=== PATIENT | male | born 1970 | race Caucasian/White ===

== ENCOUNTER 2023-05-08 18:03 | Inpatient (IN) | payer OTHER ==
[2023-05-08 18:55] VITALS: BMI 38.4
[2023-05-08] MEDS ORDERED: DICYCLOMINE HCL 10 MG CAPSULE PO PRN (19:47)
[2023-05-08] MEDS ORDERED: NALOXONE HCL (KLOXXADO) 8 MG SPRAY NS PRN (19:47)
[2023-05-08] MEDS ORDERED: POLYETHYLENE GLYCOL (HEALTHYLAX) 3350 17 GM PACKET PO PRN (19:47)
[2023-05-08] MEDS ORDERED: ACETAMINOPHEN 325 MG TABLET (FP) PO PRN (19:47)
[2023-05-08] MEDS ORDERED: MAGNESIUM HYDROX 2400MG/30ML ORAL SUSPENSION 30 ML CUP PO PRN (19:47)
[2023-05-08] MEDS ORDERED: BENZOCAINE/MENTHOL (CHLORASEPTIC ) LOZENGE MM PRN (19:47)
[2023-05-08] MEDS ORDERED: ONDANSETRON *ODT* 4 MG TABLET SL PRN (19:47)
[2023-05-08] MEDS ORDERED: NALOXONE HCL 0.4 MG/ML VIAL IM PRN (19:47)
[2023-05-08] MEDS ORDERED: LOPERAMIDE HCL 2 MG CAPSULE PO PRN (19:47)
[2023-05-08] MEDS ORDERED: LORazepam 1 MG TABLET PO PRN (19:47)
[2023-05-08] MEDS ORDERED: BENZONATATE 200 MG CAPSULE PO PRN (19:47)
[2023-05-08] MEDS ORDERED: MAG HYDROX/AL HYDROX/SIMETH 30 ML UNIT-DOSE CUP PO PRN (19:47)
[2023-05-08] MEDS ORDERED: BISMUTH SUBSALICYLATE 524 MG/30 ML PO PRN (19:47)
[2023-05-08] MEDS ORDERED: guaiFENesin 600 MG TABLET.ER (FP) PO PRN (19:47)
[2023-05-08] MEDS ORDERED: cloNIDine HCL 0.1 MG TABLET ONE (20:18)
[2023-05-08] MEDS: cloNIDine HCL 0.1 MG TABLET PO PRN (20:20)
[2023-05-08] MEDS ORDERED: INSULIN (NOVOLOG) ASPART 100 UNITS/ML 10ML VIAL ONE (20:40)
[2023-05-08] MEDS: INSULIN SLIDING SCALE (NOVOLOG) 1 VIAL SQ SCH (20:41)
[2023-05-08] MEDS: INSULIN (LEVEMIR) 100 UNITS/ML UNITS SQ SCH (22:29)
[2023-05-08] MEDS: LORazepam 2 MG TABLET PO SCH (22:31)
[2023-05-08] MEDS: THIAMINE HCL 100 MG TABLET (FP) PO SCH (22:31)
[2023-05-08] MEDS: MELATONIN 5 MG TABLETS PO SCH (22:31)
[2023-05-08] MEDS: hydrOXYzine PAMOATE 25 MG CAPSULE (FP) PO PRN (22:34)
[2023-05-09] MEDS: LORazepam 2 MG TABLET PO SCH ×4 (05:22→22:30)
[2023-05-09] MEDS: INSULIN SLIDING SCALE (NOVOLOG) 1 VIAL SQ SCH ×3 (06:28→17:00)
[2023-05-09 08:28] LABS: HEMATOCRIT 36.1 % (35.4-49); HEMOGLOBIN 11.7 GM/dL (11.7-16.9); MCH 28.3 pg (25.7-33.7); MCHC 32.4 g/dl (32.0-35.9); MEAN CELL VOLUME 87.3 fl (80-96); MEAN PLT VOLUME 9.5 fl (7.5-11.1); PLATELET COUNT 124 10^3/uL (134-434); RBC 4.13 M/mm3 (4.00-5.60); RDW 17.3 % (11.9-15.9); WHITE BLOOD COUNT 3.7 K/mm3 (4.0-10.0)
[2023-05-09 09:02] LABS: CHLORIDE 97 mmol/L (98-107); SODIUM 137 mmol/L (136-145)
[2023-05-09 09:07] LABS: CALCIUM 8.3 mg/dL (8.5-10.1)
[2023-05-09 09:08] LABS: ALBUMIN 3.4 g/dl (3.4-5.0); BLOOD UREA NITROGEN 6.3 mg/dL (7-18); CO2 27 mmol/L (21-32); GLUCOSE,RANDOM 155 mg/dL (74-106)
[2023-05-09 09:11] LABS: CREATININE 0.6 mg/dL (0.55-1.3); SGOT/AST 56 U/L (15-37); SGPT/ALT 73 U/L (13-61)
[2023-05-09 09:12] LABS: TOT PROT 6.7 g/dl (6.4-8.2)
[2023-05-09 09:14] LABS: ALK PHOS 106 U/L (45-117)
[2023-05-09 09:15] LABS: ANION GAP 13 MMOL/L (8-16); POTASSIUM 2.9 mmol/L (3.5-5.1)
[2023-05-09] MEDS ORDERED: POTASSIUM CHLORIDE ORAL LIQUID 20 MEQ/15 ML PO ONE ×3 (09:18→15:00)
[2023-05-09] MEDS: PRENATAL VITAMINS W/ FOLIC ACID TABLET (FP) PO SCH (10:51)
[2023-05-09] MEDS: PANTOPRAZOLE 40 MG TABLET PO SCH (10:52)
[2023-05-09] MEDS: LISINOPRIL 5 MG TABLET PO SCH (10:52)
[2023-05-09] MEDS: ASPIRIN COATED 81 MG TABLET.EC PO SCH (10:54)
[2023-05-09] MEDS: hydrOXYzine PAMOATE 25 MG CAPSULE (FP) PO PRN ×2 (10:54→20:39)
[2023-05-09] MEDS: amLODIPine BESYLATE 5 MG TABLET (FP) PO SCH (10:54)
[2023-05-09] MEDS: METHOCARBAMOL 500 MG TABLET PO PRN (10:54)
[2023-05-09] MEDS ORDERED: INSULIN (NOVOLOG) ASPART 100 UNITS/ML 10ML VIAL ONE ×2 (11:59→16:52)
[2023-05-09] MEDS: EMPAGLIFLOZIN 25 MG TABLET PO SCH (12:25)
[2023-05-09] MEDS: cloNIDine HCL 0.1 MG TABLET PO PRN ×2 (12:27→20:39)
[2023-05-09] MEDS: IBUPROFEN 400 MG TABLET (FP) PO PRN (17:15)
[2023-05-09] MEDS: ATORVASTATIN CA 20 MG TABLET (FP) PO SCH (22:30)
[2023-05-09] MEDS: INSULIN (LEVEMIR) 100 UNITS/ML UNITS SQ SCH (22:30)
[2023-05-09] MEDS: THIAMINE HCL 100 MG TABLET (FP) PO SCH (22:30)
[2023-05-09] MEDS: MELATONIN 5 MG TABLETS PO SCH (22:31)
[2023-05-10] MEDS: LORazepam 1 MG TABLET PO SCH ×4 (05:47→22:07)
[2023-05-10] MEDS: hydrOXYzine PAMOATE 25 MG CAPSULE (FP) PO PRN ×3 (05:53→18:27)
[2023-05-10] MEDS: INSULIN SLIDING SCALE (NOVOLOG) 1 VIAL SQ SCH ×3 (07:57→16:31)
[2023-05-10] MEDS ORDERED: INSULIN (LEVEMIR) 100 UNITS/ML UNITS SQ SCH (08:47)
[2023-05-10] MEDS: amLODIPine BESYLATE 5 MG TABLET (FP) PO SCH (10:11)
[2023-05-10] MEDS: PRENATAL VITAMINS W/ FOLIC ACID TABLET (FP) PO SCH (10:11)
[2023-05-10] MEDS: METHOCARBAMOL 500 MG TABLET PO PRN (10:12)
[2023-05-10] MEDS: ASPIRIN COATED 81 MG TABLET.EC PO SCH (10:12)
[2023-05-10] MEDS: LISINOPRIL 5 MG TABLET PO SCH (10:12)
[2023-05-10] MEDS: PANTOPRAZOLE 40 MG TABLET PO SCH (10:12)
[2023-05-10] MEDS: EMPAGLIFLOZIN 25 MG TABLET PO SCH (10:12)
[2023-05-10] MEDS: cloNIDine HCL 0.1 MG TABLET PO PRN (11:17)
[2023-05-10] MEDS ORDERED: POTASSIUM CHLORIDE ORAL LIQUID 20 MEQ/15 ML PO ONE ×2 (14:00→18:00)
[2023-05-10] MEDS: SPIRONOLACTONE 25 MG TABLET PO SCH (14:12)
[2023-05-10] MEDS: IBUPROFEN 600 MG TABLET (FP) PO PRN (18:27)
[2023-05-10] MEDS: ATORVASTATIN CA 20 MG TABLET (FP) PO SCH (22:07)
[2023-05-10] MEDS: THIAMINE HCL 100 MG TABLET (FP) PO SCH (22:07)
[2023-05-10] MEDS: MELATONIN 5 MG TABLETS PO SCH (22:10)
[2023-05-11] MEDS ORDERED: LORazepam 0.5 MG TABLET PO PRN
[2023-05-11] MEDS: LORazepam 0.5 MG TABLET PO SCH ×4 (05:19→22:52)
[2023-05-11] MEDS: hydrOXYzine PAMOATE 25 MG CAPSULE (FP) PO PRN ×3 (05:20→22:28)
[2023-05-11] MEDS ORDERED: INSULIN (NOVOLOG) ASPART 100 UNITS/ML 10ML VIAL ONE ×4 (07:08→21:58)
[2023-05-11] MEDS: INSULIN SLIDING SCALE (NOVOLOG) 1 VIAL SQ SCH ×4 (07:15→22:37)
[2023-05-11] MEDS: ASPIRIN COATED 81 MG TABLET.EC PO SCH (10:09)
[2023-05-11] MEDS: LISINOPRIL 5 MG TABLET PO SCH (10:09)
[2023-05-11] MEDS: PRENATAL VITAMINS W/ FOLIC ACID TABLET (FP) PO SCH (10:10)
[2023-05-11] MEDS: EMPAGLIFLOZIN 25 MG TABLET PO SCH (10:10)
[2023-05-11] MEDS: PANTOPRAZOLE 40 MG TABLET PO SCH (10:10)
[2023-05-11] MEDS: SPIRONOLACTONE 25 MG TABLET PO SCH (10:11)
[2023-05-11] MEDS: amLODIPine BESYLATE 5 MG TABLET (FP) PO SCH (10:12)
[2023-05-11] MEDS ORDERED: INSULIN SLIDING SCALE (NOVOLOG) 1 VIAL SQ SCH (11:30)
[2023-05-11] MEDS: GABAPENTIN 300 MG CAPSULE PO SCH ×2 (13:15→22:28)
[2023-05-11] MEDS: FUROSEMIDE 40 MG TABLET (FP) PO SCH (14:58)
[2023-05-11] MEDS: IBUPROFEN 600 MG TABLET (FP) PO PRN (14:59)
[2023-05-11 20:55] VITALS: RESP 18
[2023-05-11] MEDS ORDERED: SUVOREXANT 10 MG TABLET PO PRN (22:00)
[2023-05-11] MEDS ORDERED: INSULIN (LEVEMIR) 100 UNITS/ML UNITS SQ SCH (22:00)
[2023-05-11] MEDS: ATORVASTATIN CA 20 MG TABLET (FP) PO SCH (22:29)
[2023-05-11] MEDS: IBUPROFEN 400 MG TABLET (FP) PO PRN (22:29)
[2023-05-11] MEDS: THIAMINE HCL 100 MG TABLET (FP) PO SCH (22:31)
[2023-05-12] MEDS ORDERED: LORazepam 0.5 MG TABLET PO ONE (05:00)
[2023-05-12] MEDS: GABAPENTIN 300 MG CAPSULE PO SCH (05:05)
[2023-05-12] MEDS: hydrOXYzine PAMOATE 25 MG CAPSULE (FP) PO PRN (05:07)
[2023-05-12] MEDS: IBUPROFEN 600 MG TABLET (FP) PO PRN (06:09)
[2023-05-12] MEDS: METHOCARBAMOL 500 MG TABLET PO PRN (06:10)
[2023-05-12] MEDS ORDERED: INSULIN (NOVOLOG) ASPART 100 UNITS/ML 10ML VIAL ONE (06:59)
[2023-05-12] MEDS: INSULIN SLIDING SCALE (NOVOLOG) 1 VIAL SQ SCH (07:00)
[2023-05-12] MEDS: amLODIPine BESYLATE 5 MG TABLET (FP) PO SCH (09:21)
[2023-05-12] MEDS: PRENATAL VITAMINS W/ FOLIC ACID TABLET (FP) PO SCH (09:21)
[2023-05-12] MEDS: FUROSEMIDE 40 MG TABLET (FP) PO SCH (09:21)
[2023-05-12] MEDS: ASPIRIN COATED 81 MG TABLET.EC PO SCH (09:21)
[2023-05-12] MEDS: PANTOPRAZOLE 40 MG TABLET PO SCH (09:21)
[2023-05-12] MEDS: EMPAGLIFLOZIN 25 MG TABLET PO SCH (09:22)
[2023-05-12] MEDS: SPIRONOLACTONE 25 MG TABLET PO SCH (09:22)
[2023-05-12] MEDS: LISINOPRIL 5 MG TABLET PO SCH (09:22)
[2023-05-12 09:42] VITALS: BP 145/72; PULSE 80; TEMP 97.6
== END 2023-05-12 09:45 | disposition home or self-care (01) | DRG 775 ==
LOC: YASAS 18:03 → Y6N 20:42
PROVIDERS: ADMIT Allergy & Immunology; ATTEND Surgery
PROC: HZ2ZZZZ Detoxification Services for Substance Abuse Treatment (ICD-10-PCS; principal; 2023-05-08)
DX: F10.230 Alcohol dependence with withdrawal, uncomplicated (principal); F10.282 Alcohol dependence with alcohol-induced sleep disorder; F10.24 Alcohol dependence with alcohol-induced mood disorder; F41.9 Anxiety disorder, unspecified; E87.6 Hypokalemia; I10 Essential (primary) hypertension; E78.5 Hyperlipidemia, unspecified; K21.9 Gastro-esophageal reflux disease without esophagitis; K70.30 Alcoholic cirrhosis of liver without ascites; E10.9 Type 1 diabetes mellitus without complications; Z79.4 Long term (current) use of insulin; E66.9 Obesity, unspecified; Z68.38 Body mass index [BMI] 38.0-38.9, adult
CPT/HCPCS: 36415; 80053; 82962; 83036; 84132; 85027; 86780; 87635

== ENCOUNTER 2023-12-06 10:13 | Inpatient (IN) | payer OTHER ==
[2023-12-06 11:03] VITALS: BMI 38.7
[2023-12-06] MEDS ORDERED: LOPERAMIDE HCL 2 MG CAPSULE PO PRN (11:49)
[2023-12-06] MEDS ORDERED: NALOXONE HCL (KLOXXADO) 8 MG SPRAY NS PRN (11:49)
[2023-12-06] MEDS ORDERED: BISMUTH SUBSALICYLATE 524 MG/30 ML PO PRN (11:49)
[2023-12-06] MEDS ORDERED: BENZONATATE 200 MG CAPSULE PO PRN (11:49)
[2023-12-06] MEDS ORDERED: MAG HYDROX/AL HYDROX/SIMETH 30 ML UNIT-DOSE CUP PO PRN (11:49)
[2023-12-06] MEDS ORDERED: guaiFENesin 600 MG TABLET.ER (FP) PO PRN (11:49)
[2023-12-06] MEDS ORDERED: MAGNESIUM HYDROX 2400MG/30ML ORAL SUSPENSION 30 ML CUP PO PRN (11:49)
[2023-12-06] MEDS ORDERED: DICYCLOMINE HCL 10 MG CAPSULE PO PRN (11:49)
[2023-12-06] MEDS ORDERED: IBUPROFEN 400 MG TABLET (FP) PO PRN (11:49)
[2023-12-06] MEDS ORDERED: NALOXONE HCL 0.4 MG/ML VIAL IM PRN (11:49)
[2023-12-06] MEDS ORDERED: ONDANSETRON *ODT* 4 MG TABLET SL PRN (11:49)
[2023-12-06] MEDS ORDERED: BENZOCAINE/MENTHOL (CHLORASEPTIC ) LOZENGE MM PRN (11:49)
[2023-12-06] MEDS ORDERED: POLYETHYLENE GLYCOL (HEALTHYLAX) 3350 17 GM PACKET PO PRN (11:49)
[2023-12-06] MEDS ORDERED: INSULIN (NOVOLOG) ASPART 100 UNITS/ML 10ML VIAL ONE ×2 (13:39→22:30)
[2023-12-06] MEDS: INSULIN (NOVOLOG) ASPART 100 UNITS/ML 10ML VIAL SQ ONE (13:42)
[2023-12-06] MEDS: GABAPENTIN 300 MG CAPSULE PO SCH (14:21)
[2023-12-06] MEDS: diazePAM 5 MG TABLET PO PRN (14:21)
[2023-12-06] MEDS: IBUPROFEN 600 MG TABLET (FP) PO PRN (14:24)
[2023-12-06] MEDS: AMMONIUM LACTATE 12% LOTION 225 GM BOTTLE TP SCH (15:35)
[2023-12-06] MEDS: INSULIN ASPART SLIDING SCALE (NOVOLOG) 1 VIAL SQ SCH (16:47)
[2023-12-06] MEDS: diazePAM 5 MG TABLET PO SCH (17:28)
[2023-12-06] MEDS: hydrOXYzine PAMOATE 25 MG CAPSULE (FP) PO PRN (22:23)
[2023-12-06] MEDS: MELATONIN 5 MG TABLETS PO SCH (22:23)
[2023-12-06] MEDS: THIAMINE HCL 100 MG TABLET (FP) PO SCH (22:23)
[2023-12-06] MEDS: ATORVASTATIN CA 20 MG TABLET (FP) PO SCH (22:24)
[2023-12-07] MEDS ORDERED: INSULIN (NOVOLOG) ASPART 100 UNITS/ML 10ML VIAL ONE ×4 (06:44→21:48)
[2023-12-07] MEDS: LISINOPRIL 5 MG TABLET PO SCH (10:06)
[2023-12-07] MEDS: ASPIRIN 81 MG CHEWABLE TABLETS PO SCH (10:06)
[2023-12-07] MEDS: SPIRONOLACTONE 25 MG TABLET PO SCH (10:06)
[2023-12-07] MEDS: PRENATAL VITAMINS W/ FOLIC ACID TABLET (FP) PO SCH (10:06)
[2023-12-07] MEDS: amLODIPine BESYLATE 5 MG TABLET (FP) PO SCH (10:06)
[2023-12-07] MEDS: FAMOTIDINE 20 MG TABLET PO SCH (10:06)
[2023-12-07] MEDS: ACETAMINOPHEN 325 MG TABLET (FP) PO PRN (10:09)
[2023-12-07] MEDS: EMPAGLIFLOZIN (JARDIANCE) 25 MG TABLET PO SCH (10:43)
[2023-12-07 10:44] LABS: HEMATOCRIT 33.6 % (35.4-49); HEMOGLOBIN 10.9 GM/dL (11.7-16.9); MCH 30.1 pg (25.7-33.7); MCHC 32.5 g/dl (32.0-35.9); MEAN CELL VOLUME 92.6 fl (80-96); MEAN PLT VOLUME 9.4 fl (7.5-11.1); PLATELET COUNT 142 10^3/uL (134-434); RBC 3.62 M/mm3 (4.00-5.60); RDW 18.1 % (11.9-15.9); WHITE BLOOD COUNT 6.2 K/mm3 (4.0-10.0)
[2023-12-07 10:47] LABS: CHLORIDE 100 mmol/L (98-107); POTASSIUM 4.2 mmol/L (3.5-5.1); SODIUM 136 mmol/L (136-145)
[2023-12-07 10:53] LABS: ALBUMIN 3.3 g/dl (3.4-5.0)
[2023-12-07 10:54] LABS: ANION GAP 8 mmol/L (4-13); CO2 29 mmol/L (21-32); GLUCOSE,RANDOM 199 mg/dL (74-106)
[2023-12-07 10:55] LABS: BLOOD UREA NITROGEN 13.3 mg/dL (7-18)
[2023-12-07 10:57] LABS: SGPT/ALT 74 U/L (13-61)
[2023-12-07 10:58] LABS: CREATININE 0.8 mg/dL (0.55-1.3); SGOT/AST 50 U/L (15-37)
[2023-12-07 10:59] LABS: BILIRUBIN,TOTAL 0.5 mg/dL (0.2-1); TOT PROT 6.6 g/dl (6.4-8.2)
[2023-12-07 11:00] LABS: ALK PHOS 148 U/L (45-117)
[2023-12-07] MEDS: INSULIN ASPART SLIDING SCALE (NOVOLOG) 1 VIAL SQ SCH (11:54)
[2023-12-07] MEDS: METHOCARBAMOL 500 MG TABLET PO PRN (17:10)
[2023-12-07] MEDS: SUVOREXANT 10 MG TABLET PO PRN (22:04)
[2023-12-08] MEDS ORDERED: INSULIN (NOVOLOG) ASPART 100 UNITS/ML 10ML VIAL ONE ×2 (06:02→11:33)
[2023-12-08] MEDS: diazePAM 5 MG TABLET PO SCH (06:03)
[2023-12-08] MEDS: FUROSEMIDE 40 MG TABLET (FP) PO SCH (10:10)
[2023-12-08] MEDS: NAPHAZOLINE/PHENIRAMINE OPHTHALMIC 15 ML BOTTLE OU SCH (15:43)
[2023-12-08] MEDS ORDERED: [UNRECOGNIZED DRUG - OTHER] SQ SCH (22:00)
[2023-12-08] MEDS: INSULIN (LEVEMIR) 100 UNITS/ML UNITS SQ SCH (22:28)
[2023-12-09] MEDS: diazePAM 5 MG TABLET PO SCH (06:16)
[2023-12-09] MEDS ORDERED: INSULIN (NOVOLOG) ASPART 100 UNITS/ML 10ML VIAL ONE (10:57)
[2023-12-09] MEDS: INSULIN (NOVOLOG) ASPART 100 UNITS/ML 10ML VIAL SQ SCH (11:10)
[2023-12-09 19:19] LABS: PH,URINE 7.5 (5.0-8.0); URINE APPEARANCE CLEAR; URINE BILIRUBIN NEGATIVE (NEGATIVE); URINE COLOR YELLOW; URINE GLUCOSE (UA) 3+ (NEGATIVE); URINE KETONE NEGATIVE (NEGATIVE); URINE LEUK ESTERASE NEGATIVE (NEGATIVE); URINE NITRITE NEGATIVE (NEGATIVE); URINE PROTEIN NEGATIVE (NEGATIVE); URINE UROBILINOGEN 0.2 mg/dL (0.2-1.0)
[2023-12-10] MEDS: diazePAM 5 MG TABLET PO ONE (05:51)
[2023-12-10 06:21] VITALS: BP 130/69; PULSE 71; RESP 16; TEMP 97.7
== END 2023-12-10 09:40 | disposition home or self-care (01) | DRG 775 ==
LOC: YASAS 10:13 → Y6N 12:24
PROVIDERS: ADMIT Allergy & Immunology; ATTEND Surgery
PROC: HZ2ZZZZ Detoxification Services for Substance Abuse Treatment (ICD-10-PCS; principal; 2023-12-06)
DX: F10.230 Alcohol dependence with withdrawal, uncomplicated (principal); F10.280 Alcohol dependence with alcohol-induced anxiety disorder; F10.282 Alcohol dependence with alcohol-induced sleep disorder; E78.5 Hyperlipidemia, unspecified; I10 Essential (primary) hypertension; K21.9 Gastro-esophageal reflux disease without esophagitis; K70.30 Alcoholic cirrhosis of liver without ascites; E11.9 Type 2 diabetes mellitus without complications; Z79.4 Long term (current) use of insulin; R60.0 Localized edema; Z99.89 Dependence on other enabling machines and devices
CPT/HCPCS: 36415; 80053; 80307; 81003; 82962; 83036; 85027; 86780; 87635; 93005; 93010

== ENCOUNTER 2025-01-11 14:26 | Inpatient (IN) | payer OTHER ==
[2025-01-11 15:25] VITALS: BMI 36.9
[2025-01-11] MEDS ORDERED: MAG HYDROX/AL HYDROX/SIMETH 30 ML UNIT-DOSE CUP PO PRN (15:27)
[2025-01-11] MEDS ORDERED: ACETAMINOPHEN 325 MG TABLET (FP) PO PRN (15:27)
[2025-01-11] MEDS ORDERED: IBUPROFEN 600 MG TABLET (FP) PO PRN (15:27)
[2025-01-11] MEDS ORDERED: BENZOCAINE/MENTHOL (CHLORASEPTIC ) LOZENGE MM PRN (15:27)
[2025-01-11] MEDS ORDERED: guaiFENesin 600 MG TABLET.ER (FP) PO PRN (15:27)
[2025-01-11] MEDS ORDERED: BENZONATATE 200 MG CAPSULE PO PRN (15:27)
[2025-01-11] MEDS ORDERED: IBUPROFEN 400 MG TABLET (FP) PO PRN (15:27)
[2025-01-11] MEDS ORDERED: MAGNESIUM HYDROX 2400MG/30ML ORAL SUSPENSION 30 ML CUP PO PRN (15:27)
[2025-01-11] MEDS ORDERED: NALOXONE (NARCAN) HCL 4 MG/0.1 ML SPRAY NS PRN (15:27)
[2025-01-11] MEDS ORDERED: POLYETHYLENE GLYCOL (HEALTHYLAX) 3350 17 GM PACKET PO PRN (15:27)
[2025-01-11] MEDS: INSULIN (NOVOLOG) ASPART 100 UNITS/ML 10ML VIAL SQ SCH (17:54)
[2025-01-11] MEDS: INSULIN ASPART SLIDING SCALE (NOVOLOG) 1 VIAL SQ SCH (18:05)
[2025-01-11] MEDS: INSULIN (NOVOLOG) ASPART 100 UNITS/ML 10ML VIAL SQ ONE (18:29)
[2025-01-11] MEDS ORDERED: INSULIN (NOVOLOG) ASPART 100 UNITS/ML 10ML VIAL ONE (21:07)
[2025-01-11] MEDS: INSULIN GLARGINE (LANTUS) 100 UNITS/ML UNITS SQ SCH (21:11)
[2025-01-11] MEDS: ATORVASTATIN CA 20 MG TABLET (FP) PO SCH (21:13)
[2025-01-11] MEDS: traZODone HCL 50 MG TABLET (FP) PO SCH (21:13)
[2025-01-11] MEDS: ACAMPROSATE CALCIUM 333 MG TABLET.DR PO SCH (21:13)
[2025-01-11] MEDS: TAMSULOSIN HCL 0.4 MG CAP PO SCH (21:14)
[2025-01-11] MEDS: GABAPENTIN 300 MG CAPSULE PO SCH (21:14)
[2025-01-11] MEDS: hydrOXYzine PAMOATE 25 MG CAPSULE (FP) PO PRN (21:14)
[2025-01-11] MEDS: THIAMINE 100 MG TABLET PO SCH (21:14)
[2025-01-11] MEDS: LIDOCAINE HCL 5% TOP OINTMENT 50 GM TUBE TP ONE (22:14)
[2025-01-11] MEDS: LIDOCAINE PATCH REMOVAL MC SCH (22:14)
[2025-01-11] MEDS: MELATONIN 5 MG TABLETS PO SCH (22:15)
[2025-01-12] MEDS ORDERED: INSULIN (NOVOLOG) ASPART 100 UNITS/ML 10ML VIAL ONE ×4 (07:11→20:39)
[2025-01-12] MEDS: EMPAGLIFLOZIN (JARDIANCE) 25 MG TABLET PO SCH (07:23)
[2025-01-12] MEDS: LIDOCAINE 5% TOPICAL PATCH TP SCH (09:53)
[2025-01-12] MEDS: PRENATAL VITAMINS W/ FOLIC ACID TABLET (FP) PO SCH (09:53)
[2025-01-12] MEDS: SPIRONOLACTONE 25 MG TABLET PO SCH (09:54)
[2025-01-12] MEDS: FUROSEMIDE 40 MG TABLET (FP) PO SCH (09:54)
[2025-01-12] MEDS: ASPIRIN COATED 81 MG TABLET.EC PO SCH (09:54)
[2025-01-12] MEDS: LISINOPRIL 10 MG TABLET PO SCH (09:54)
[2025-01-13] MEDS ORDERED: hydrOXYzine PAMOATE 25 MG CAPSULE (FP) PO PRN (10:08)
[2025-01-13] MEDS ORDERED: INSULIN ASPART SLIDING SCALE (NOVOLOG) 1 VIAL SQ SCH (11:30)
[2025-01-13] MEDS: INSULIN (NOVOLOG) ASPART 100 UNITS/ML 10ML VIAL SQ SCH ×3 (12:05→12:30)
[2025-01-13] MEDS: traMADol HCL 50 MG TABLET PO SCH (12:21)
[2025-01-13] MEDS: hydrOXYzine PAMOATE 50 MG CAPSULE (FP) PO PRN (21:05)
[2025-01-14] MEDS ORDERED: INSULIN (NOVOLOG) ASPART 100 UNITS/ML 10ML VIAL ONE (11:02)
[2025-01-14] MEDS: DULoxetine HCL 30 MG CAPSULE.DR PO SCH (11:15)
[2025-01-14] MEDS: SUVOREXANT 10 MG TABLET PO PRN (21:09)
[2025-01-15] MEDS: traZODone HCL 50 MG TABLET (FP) PO PRN (21:11)
[2025-01-16] MEDS ORDERED: INSULIN (NOVOLOG) ASPART 100 UNITS/ML 10ML VIAL ONE ×4 (06:15→16:48)
[2025-01-16 06:43] VITALS: RESP 18
[2025-01-16 11:02] LABS: HEMATOCRIT 36.7 % (40.1-51.0); HEMOGLOBIN 11.7 g/dL (13.7-17.5); MCHC 31.9 g/dl (32.3-36.5); MEAN CELL VOLUME 88.6 fl (79.0-92.2); MEAN PLT VOLUME 12.2 fl (9.4-12.4); PLATELET COUNT 247 x10^3/uL (163-337); RDW 20.1 % (12.2-16.1)
[2025-01-16 11:09] LABS: INR 1.16 (0.83-1.09); PROTHROMBIN TIME (PATIENT) 12.8 SEC (9.7-13.0)
[2025-01-16 11:12] LABS: POTASSIUM 4.2 mmol/L (3.5-5.1)
[2025-01-16 11:24] LABS: CALCIUM 8.8 mg/dL (8.5-10.1)
[2025-01-16 11:25] LABS: ALBUMIN 3.4 g/dl (3.4-5.0); BLOOD UREA NITROGEN 16.8 mg/dL (7-18); MAGNESIUM 2.6 mg/dL (1.8-2.4)
[2025-01-16 11:30] LABS: TOT PROT 7.2 g/dl (6.4-8.2)
[2025-01-16] MEDS: LOPERAMIDE HCL 2 MG CAPSULE PO PRN (21:09)
[2025-01-17] MEDS ORDERED: INSULIN (NOVOLOG) ASPART 100 UNITS/ML 10ML VIAL ONE ×2 (06:28→12:04)
[2025-01-17] MEDS: SUVOREXANT 10 MG TABLET PO PRN (22:17)
[2025-01-18] MEDS ORDERED: INSULIN (NOVOLOG) ASPART 100 UNITS/ML 10ML VIAL ONE (06:31)
[2025-01-18] MEDS ORDERED: NALTREXONE MICROSPHERES (VIVITROL) 380 MG DISP.SYRIN IM ONE (14:00)
[2025-01-19] MEDS ORDERED: INSULIN (NOVOLOG) ASPART 100 UNITS/ML 10ML VIAL ONE (06:37)
[2025-01-19 06:38] VITALS: TEMP 97.8
[2025-01-19 09:08] VITALS: BP 145/65; PULSE 77
== END 2025-01-19 10:45 | disposition home or self-care (01) | DRG 772 ==
LOC: YASAS 14:26 → Y5N 17:55
PROVIDERS: ADMIT Psychiatry & Neurology Pain Medicine; ATTEND Psychiatry & Neurology Pain Medicine
PROC: HZ42ZZZ Group Counseling for Substance Abuse Treatment, Cognitive-Behavioral (ICD-10-PCS; principal; 2025-01-11)
DX: F10.20 Alcohol dependence, uncomplicated (principal); F19.282 Other psychoactive substance dependence with psychoactive substance-induced sleep disorder; F19.280 Other psychoactive substance dependence with psychoactive substance-induced anxiety disorder; F19.24 Other psychoactive substance dependence with psychoactive substance-induced mood disorder; F41.9 Anxiety disorder, unspecified; F32.A Depression, unspecified; G47.33 Obstructive sleep apnea (adult) (pediatric); I11.0 Hypertensive heart disease with heart failure; I50.9 Heart failure, unspecified; K74.60 Unspecified cirrhosis of liver; K21.9 Gastro-esophageal reflux disease without esophagitis; E11.9 Type 2 diabetes mellitus without complications; Z79.4 Long term (current) use of insulin; N40.0 Benign prostatic hyperplasia without lower urinary tract symptoms; D64.9 Anemia, unspecified; R60.0 Localized edema; R26.89 Other abnormalities of gait and mobility; Z99.89 Dependence on other enabling machines and devices; Z87.891 Personal history of nicotine dependence
CPT/HCPCS: 0241U-QW; 36415; 36600; 71045-TC-FY; 80048; 80053; 80061; 80305; 80307; 81003; 82010; 82140; 82652; 82728; 82803; 82962; 83036; 83540; 83550; 83735; 83880; 84100; 84436; 84443; 84466; 84479; 84484; 85025; 85027; 85610; 86803; 86850; 86900; 86901; 87086; 93005; 93010; 93306-TC; 99285-25; G0378